=== PATIENT | female | born 1990 | race Caucasian/White ===

== ENCOUNTER 2018-07-19 10:41 | Inpatient (IN) | payer OTHER ==
[~2018-07-19] VITALS: Ht 149.9 cm; Wt 76.9 kg
[2018-07-19] MEDS ORDERED: ACETAMINOPHEN 500 MG TABLET ONE (11:54)
[2018-07-19] MEDS ORDERED: DIPHENHYDRAMINE 50 MG/ML, 1ML ONE (11:54)
[2018-07-19] MEDS ORDERED: ONDANSETRON 2MG/ML, 2ML ONE (11:54)
[2018-07-19] MEDS ORDERED: DIPHENHYDRAMINE 50 MG/ML, 1ML IVPush ONE (12:00)
[2018-07-19] MEDS ORDERED: SODIUM CHLORIDE 0.9% 1,000ML IVBOLUS ONE ×2 (12:00→15:00)
[2018-07-19] MEDS ORDERED: ACETAMINOPHEN 500 MG TABLET PO ONE (12:00)
[2018-07-19] MEDS ORDERED: ONDANSETRON 2MG/ML, 2ML IVPush ONE (12:00)
[2018-07-19] MEDS ORDERED: SODIUM CHLORIDE FLUSH 10ML SYR IVF ONE (12:00)
[2018-07-19 12:13] LABS: BASOPHILS # (AUTO) 0.01 x10^3/uL (0-0.1); BASOPHILS % (AUTO) 0 % (0-1); EOSINOPHILS # (AUTO) 0.17 x10^3/uL (0-0.4); EOSINOPHILS % (AUTO) 4 % (1-7); LYMPHOCYTES # (AUTO) 0.55 x10^3/uL (1-3.4); LYMPHOCYTES % (AUTO) 12 % (22-44); MD NO; MEAN CORPUSCULAR HEMOGLOBIN 30.5 pg (27.0-34.8); MEAN CORPUSCULAR HGB CONC 34.8 g/dL (32.4-35.8); MEAN CORPUSCULAR VOLUME 87.4 fL (80-100); MONOCYTES # (AUTO) 0.18 x10^3/uL (0.2-0.8); MONOCYTES % (AUTO) 4 % (2-9); NEUTROPHILS # (AUTO) 3.59 x10^3/uL (1.8-6.8); NEUTROPHILS % (AUTO) 80 % (42-75); PLATELET COUNT 181 x10^3/uL (130-400); RED BLOOD COUNT 4.43 x10^6/uL (3.82-5.3); RED CELL DISTRIBUTION WIDTH 12.7 % (9.6-15.2)
[2018-07-19 12:22] LABS: ALANINE AMINOTRANSFERASE 29 U/L (12-78); ALBUMIN 3.4 g/dL (3.4-5.0); ANION GAP 9 mmol/L (5-15); CALCIUM 7.4 mg/dL (8.5-10.1); CHLORIDE 107 mmol/L (98-107); CREATININE 0.94 mg/dL (0.55-1.02)
[2018-07-19 12:25] LABS: ALKALINE PHOSPHATASE 65 U/L (45-117); BILIRUBIN,TOTAL 0.4 mg/dL (0.2-1.0); TOTAL PROTEIN 6.7 g/dL (6.4-8.2)
[2018-07-19] MEDS ORDERED: IBUPROFEN 200 MG TABLET ONE (12:47)
[2018-07-19] MEDS ORDERED: METOCLOPRAMIDE 5 MG/ML, 2ML ONE (12:47)
[2018-07-19] MEDS ORDERED: methylPREDNISolone SOD SUCC 125 MG/2 ML ONE (12:47)
[2018-07-19] MEDS ORDERED: methylPREDNISolone SOD SUCC 125 MG/2 ML IVPush ONE (13:00)
[2018-07-19] MEDS ORDERED: IBUPROFEN 200 MG TABLET PO ONE (13:00)
[2018-07-19] MEDS ORDERED: METOCLOPRAMIDE 5 MG/ML, 2ML IVPush ONE (13:00)
[2018-07-19 13:01] LABS: CULTURE INDICATED? NO; MICROSCOPIC NOT IND
[2018-07-19 14:01] LABS: RAPID INFLUENZA A Negative (Negative); RAPID INFLUENZA B Negative (Negative)
[2018-07-19] MEDS ORDERED: SULF1TAB24 PO (14:30)
[2018-07-19] MEDS ORDERED: ACETAMINOPHEN 325 MG TABLET PO PRN (14:30)
[2018-07-19] MEDS ORDERED: LABETALOL 5MG/ML, 20ML IVPush PRN (14:30)
[2018-07-19] MEDS ORDERED: ONDANSETRON ODT 4 MG PO PRN (14:30)
[2018-07-19] MEDS ORDERED: ONDANSETRON 2MG/ML, 2ML IVPush PRN (14:30)
[2018-07-19] MEDS ORDERED: hydrALAzine 20 MG/ML, 1ML IVPush PRN (14:30)
[2018-07-19 14:56] LABS: C-REACTIVE PROTEIN, QUANT 2.9 mg/dL (0.02-0.49)
[2018-07-19 15:10] LABS: HCT (SEDRATE) 38.7 % (34.6-47.8)
[2018-07-19] MEDS ORDERED: MAGNESIUM SULFATE PMX 2GM/50ML 50 ML IV ONE (15:30)
[2018-07-19 15:44] VITALS: BP 92/60
[2018-07-19] MEDS: HEPARIN 5,000 UNITS/ML, 1ML SQ SCH ×2 (17:23→22:45)
[2018-07-19] MEDS: SODIUM CHLORIDE 0.9% 1,000 ML IV SCH ×2 (17:24→20:25)
[2018-07-19] MEDS ORDERED: VANCOMYCIN PER PHARMACY MC PRN (17:30)
[2018-07-19] MEDS ORDERED: DIPHENHYDRAMINE 50 MG/ML, 1ML IVPush PRN (17:30)
[2018-07-19] MEDS: methylPREDNISolone SOD SUCC 125 MG/2 ML IVPush SCH (18:38)
[2018-07-19] MEDS ORDERED: SODIUM CHLORIDE 0.9%, 500ML IVBOLUS ONE (19:30)
[2018-07-19 19:55] VITALS: BP 95/59
[2018-07-19] MEDS ORDERED: PHARMACOKINETIC MONITORING MC PRN (20:00)
[2018-07-19] MEDS: FAMOTIDINE 20 MG/2 ML IVPush SCH (20:25)
[2018-07-19] MEDS: AMPICILLIN/SULBACTAM 3 GM in SODIUM CHLORIDE 0.9% 100 ML IV SCH (20:27)
[2018-07-19 20:58] LABS: AMPHETAMINE SCREEN, URINE Negative (Negative); BARBITURATE SCREEN, URINE Negative (Negative); BENZODIAZEPINE SCREEN, URINE Negative (Negative); CANNABINOID SCREEN, URINE Negative (Negative); COCAINE SCREEN, URINE Negative (Negative); METHADONE SCREEN, URINE Negative (Negative); OPIATE SCREEN, URINE Negative (Negative)
[2018-07-19] MEDS ORDERED: OMNIPAQUE 350 MG/ML, 100ML BOTTLE ONE (21:36)
[2018-07-19 21:42] VITALS: BP 97/62
[2018-07-19] MEDS: VANCOMYCIN 1,500 MG in SODIUM CHLORIDE 0.9% 250 ML IV SCH (21:48)
[2018-07-20 03:00] VITALS: BP 101/67
[2018-07-20] MEDS: methylPREDNISolone SOD SUCC 125 MG/2 ML IVPush SCH (03:02)
[2018-07-20] MEDS: AMPICILLIN/SULBACTAM 3 GM in SODIUM CHLORIDE 0.9% 100 ML IV SCH ×2 (03:02→08:30)
[2018-07-20] MEDS: HEPARIN 5,000 UNITS/ML, 1ML SQ SCH (05:38)
[2018-07-20] MEDS: SODIUM CHLORIDE 0.9% 1,000 ML IV SCH (05:39)
[2018-07-20 07:31] VITALS: BP 102/70
[2018-07-20] MEDS: VANCOMYCIN 1,500 MG in SODIUM CHLORIDE 0.9% 250 ML IV SCH (08:00)
[2018-07-20] MEDS: FAMOTIDINE 20 MG/2 ML IVPush SCH (09:00)
[2018-07-24 15:42] LABS: ANA SCREEN POSITIVE (Negative); ANTI-NUCLEAR ANTIBODY PATTERN HOMOGENOUS
== END 2018-07-20 11:28 | disposition left against medical advice (07) | DRG 315 ==
LOC: ED 13:55 → EDIP 13:56 → ED 14:22 → 4WST 15:37
PROVIDERS: ADMIT Hospitalist; ATTEND Hospitalist
DX: I95.9 Hypotension, unspecified (principal); R65.10 Systemic inflammatory response syndrome (SIRS) of non-infectious origin without acute organ dysfunction; R50.9 Fever, unspecified; E83.42 Hypomagnesemia; E83.39 Other disorders of phosphorus metabolism; M19.90 Unspecified osteoarthritis, unspecified site; R11.2 Nausea with vomiting, unspecified
CPT/HCPCS: 36415; 84145; 87400; 99291; J3490; 71045; 71275; 80053; 80307; 81003; 83605; 83735; 84100; 85025; 85379; 85651; 86038; 86039; 86140; 87040; 87081; 87880; 93005; 96361; 96374; 96375; G0378; J0295; J1644; J2405; J3370; Q9967; J1200; J2765; J2930; J3475; J7030; J7040; J7050